=== PATIENT | female | born 1955 | race Caucasian/White ===

== ENCOUNTER 2022-01-10 06:15 | Day surgery (SDC) | payer BC, MEDICARE ==
[~2022-01-10] VITALS: Ht 167.6 cm; Wt 119.3 kg
[~2022-01-10 06:15] MED LIST: COZAAR100 MG PO; HYDROCHLOROTHIA25 MG PO; NORVASC10 MG PO; OXYBUTYNIN CHLOR5 MG PO; VITAMIN C100 MG PO
--- NOTE | 2022-01-10 06:33 | NUR ---
COVID 19 SWAB DONE TO BOTH NARES AND SENT TO IN HOUSE LAB.
--- NOTE | 2022-01-10 08:57 | NUR ---
01/10/22 0857 Sonia Griffiths 0845 PATIENT ARRIVES TO PACU RESTING WITH EYES CLOSED. AWAKE OFF/ON, BUT VERY DROWSY. DENIES PAIN OR NAUSEA. RESP EVEN AND UNLABORED, MASK AT 3 LITERS, SATS >97%.
--- NOTE | 2022-01-10 10:49 | OR ---
[facility] [address], [place] [address] Signed DATE OF OPERATION: 01/10/2022 SURGEON: Fariha Armstrong MD PREOPERATIVE DIAGNOSES: 1. Screening. 2. Unremarkable colonoscopy at age 56. POSTOPERATIVE DIAGNOSES: 1. 7 mm sessile polyp at hepatic flexure. 2. Minimal to moderate sigmoid diverticulosis. 3. Minimal internal hemorrhoids. PROCEDURE: Colonoscopy with hot biopsy. ESTIMATED BLOOD LOSS: None. INDICATIONS: July is a 66-year-old obese female with a body mass index of 53. She also has a very full round face, heavy neck, chest and abdomen. I helped her with a screening colonoscopy in 2011 at the age of 56. This was unremarkable. She did well with Versed and fentanyl at that time. She has no family history of colon cancer or polyps. She has no lower GI complaints. She returns now for followup screening colonoscopy. In the office, I gave her a pamphlet on colonoscopy and we reviewed the nature of the test. There is risk including, but not limited to gas bloating, crampy abdominal pain, bleeding, perforation requiring surgery, and missed diagnosis. We also reviewed the need for IV conscious sedation. She had expressed understanding and wished to proceed. PROCEDURE NOTE: July was taken into our endoscopy suite and placed in the left lateral decubitus position. We gave her initial 1 mg of Versed and 100 mcg of fentanyl. Unfortunately that IV infiltrated and that medicine went into the subcutaneous space. We started a new IV and in the end, we used a total of 6 mg of Versed and 200 mcg of fentanyl. However, she was generally wide awake or she was asleep and apneic with decreased O2 levels. Of course, when she was awake, she was uncomfortable with advancing the scope and so forth. She would be much better served with monitored anesthesia care and propofol infusion in the future. A digital rectal exam had been performed and this was unremarkable. The adult colonoscope was introduced and advanced under direct Electronically Signed By: FARIHA ARMSTRONG MD 01/10/22 1049 PATIENT NAME: JULY MARIANO OPERATIVE REPORT DATE OF : 53 REPORT #: [id number] PHYSICIAN: FARIHA ARMSTRONG MD PCP: ADONAY HILARIO MD REPORT IS CONFIDENTIAL AND NOT TO BE RELEASED WITHOUT AUTHORIZATION [facility] [address], [place] [address] Signed visualization of the camera. We were struggling with her being awake versus apneic and not breathing and low O2 sats. We did use some abdominal compression and moved the scope around into the cecum itself. All-in-all she is not technically difficult to pass the scope. Again, she would do much better with IV propofol. Fortunately, her prep was quite good. We could easily see the appendiceal orifice and ileocecal valve. The scope was slowly withdrawn. We took pictures throughout for photodocumentation. We found a sessile 7 mm polyp in the hepatic flexure. It was removed with several bites of the hot biopsy forceps. She has minimal to moderate sigmoid diverticulosis. They are moderate in size, few in number, and scattered about. The rectum was unremarkable. Upon retroflexion of the scope, she has very minimal internal hemorrhoid tissue. After this, the gas was suctioned out and the colonoscope removed. July tolerated the procedure quite well. RECOMMENDATIONS: I will see July back in my office in 7 to 14 days to review her results. She would be much better served with monitored anesthesia care in the future. Fariha Armstrong MD ALB/MODL /[id number] cc: MD Fariha Brewster MD Copies: FARIHA ARMSTRONG MD ~ Electronically Signed By: FARIHA ARMSTRONG MD 01/10/22 1049 PATIENT NAME: JULY MARIANO OPERATIVE REPORT DATE OF : 53 REPORT #: [id number] PHYSICIAN: FARIHA ARMSTRONG MD PCP: ADONAY HILARIO MD REPORT IS CONFIDENTIAL AND NOT TO BE RELEASED WITHOUT AUTHORIZATION
--- NOTE | 2022-01-10 13:46 | NUR ---
PT IS ALERT, ORIENTED AND HAS HAD PREVIOUS SCOPE. PT SEEMS AT EASE, REQUESTED PRAYER. WILL BE HERE FOR DC. WILL FOLLOW
--- NOTE | 2022-01-11 14:03 | PATH ---
[facility] [address], [place] [address] Signed SPECIMEN(S): A HEPATIC FLEXURE POLYP SPECIMEN SOURCE: A. HEPATIC FLEXURE POLYP CLINICAL HISTORY: 2011: "unremarkable". Post: Diverticulosis. Polyp x 1, internal hemorrhoids. FINAL PATHOLOGIC DIAGNOSIS: Hepatic flexure polyp, polypectomy: - Fragments of tubular adenoma. - Negative for high-grade dysplasia and malignancy. DDF:em:C2NR MICROSCOPIC EXAMINATION: Histologic sections of all submitted blocks are examined by light microscopy. These findings, together with the gross examination, support the pathologic diagnosis. GROSS DESCRIPTION: The specimen, labeled "DB, hepatic flexure polyp," is received in formalin and consists of two posey soft tissue fragments that measure 0.1-0.2 cm in greatest dimension. The specimen is entirely submitted in cassette (A1). JS (under the direct supervision of a pathologist) The Gross Description was prepared using a voice recognition system. The report was reviewed for accuracy; however, sound-alike word errors, addition and/or deletions may occur. If there is any question about this report, please contact Client Services. PERFORMING LABORATORY: The technical component was performed by [facility] [employer], [address] [place] [id number] (CLIA# [id number]). Professional interpretation was performed by [facility], [facility], [address] [place] [id number] (CLIA#: [id number]). Diagnostician: Cecil Childress DO Pathologist Electronically Signed 01/11/2022 PATIENT NAME: AHMET MARIANO PATHOLOGY DATE OF : 53 REPORT #: [id number] PHYSICIAN: [facility] PCP: ADONAY HILARIO MD REPORT IS CONFIDENTIAL AND NOT TO BE RELEASED WITHOUT AUTHORIZATION [address] [address] Signed Copies: ~ PATIENT NAME: AHMET MARIANO PATHOLOGY DATE OF : 53 REPORT #: [id number] PHYSICIAN: [facility] PCP: ADONAY HILARIO MD REPORT IS CONFIDENTIAL AND NOT TO BE RELEASED WITHOUT AUTHORIZATION
== END 2022-01-10 09:40 | disposition home or self-care (01) ==
LOC: OPS 06:15 → DS 06:15 → OPS 08:15
PROVIDERS: ATTEND Colon & Rectal Surgery
PROC: 0DBL8ZX Excision of Transverse Colon, Via Natural or Artificial Opening Endoscopic, Diagnostic (ICD-10-PCS; principal; 2022-01-10 08:15)
DX: Z12.11 Encounter for screening for malignant neoplasm of colon (principal); D12.3 Benign neoplasm of transverse colon; K57.30 Diverticulosis of large intestine without perforation or abscess without bleeding; K64.8 Other hemorrhoids; E66.9 Obesity, unspecified; Z68.43 Body mass index [BMI] 50.0-59.9, adult; Z20.822 Contact with and (suspected) exposure to COVID-19
CPT/HCPCS: 87502; 99153; C9803; G0500; J2250; J3010; J7121; U0003